=== PATIENT | male | born 1965 | race Two or more races ===

== ENCOUNTER 2020-11-10 16:22 | Emergency (ER) | payer MEDICAID ==
[~2020-11-10] VITALS: Ht 170.2 cm; Wt 100.0 kg
[~2020-11-10 16:22] MED LIST: ALPR-624 PO; BISA-77 PO; ESCI5TAB PO; FURO-150 PO; IBUP-1984 PO
[2020-11-10] MEDS ORDERED: CYCL-1 PO (18:35)
[2020-11-10] MEDS ORDERED: cyclobenzaprine 10mg tablet PO ONE (18:35)
[2020-11-10 18:48] VITALS: BP 134/99
== END 2020-11-10 18:50 | disposition home or self-care (01) ==
LOC: ER 16:22
DX: S13.4XXA Sprain of ligaments of cervical spine, initial encounter (principal); M54.2 Cervicalgia; I10 Essential (primary) hypertension; Z98.890 Other specified postprocedural states; Z79.899 Other long term (current) drug therapy; W11.XXXA Fall on and from ladder, initial encounter; Y93.89 Activity, other specified; Y92.89 Other specified places as the place of occurrence of the external cause; Y99.8 Other external cause status
CPT/HCPCS: 70450; 72125; 99285